=== PATIENT | female | born 1965 | race Caucasian/White ===

== ENCOUNTER 2024-06-30 07:00 | Day surgery (SDC) | payer OTHER ==
[2024-06-21 15:20] VITALS: BP 154/97; PULSE 87; RESP 18; TEMP 97.9; O2SAT 95
[2024-06-21 16:10] LABS: BASOPHIL % 0.6 % (0.1-1.2); EOSINOPHIL # 0.1 10^3/uL (0.0-0.2); EOSINOPHIL % 1.6 % (0.0-5.0); HEMATOCRIT(ML) 51.9 % (36.0-46.0); HEMOGLOBIN 17.9 g/dL (12.0-15.0); LYMPHOCYTES # 2.78 10^3/uL1 (1.0-4.8); LYMPHOCYTES % 39.5 % (24.0-44.0); MEAN CORP HGB 31.5 pg (26-34); MEAN CORP HGB CONCENTRATION 34.5 g/dL (33-36.5); MEAN CORP VOLUME 91.4 fL (78-100); MONOCYTES # 0.4 10^3/uL (0.3-0.8); MONOCYTES % 5.4 % (5.0-12.0); NEUTROPHIL # 3.7 10^3/uL (1.8-7.7); NEUTROPHILS % 52.8 % (41.0-85.0); PLATELET COUNT 217 10^3/uL (150-400); RED BLOOD CELL 5.68 10^6/uL (4.00-5.20)
[2024-06-21 16:26] LABS: ALBUMIN(ML) 4.4 g/dL (3.4-5.0); ALBUMIN/GLOBULIN RATIO 1.222; ANION GAP 15.5; BUN/CREATININE RATIO 14.95 (10.0-20.0); CALCIUM 9.1 mg/dL (8.4-10.5); CARBON DIOXIDE 27.3 mmol/L (20.0-32); CREATININE SERUM 1.07 mg/dL (0.59-1.40); EST GFR, NON-AA 52.5 (>/=60); POTASSIUM 3.8 mmol/L (3.6-5.2)
[2024-06-21 17:20] LABS: +ADD MANUAL DIFF(NO CHRG) NO
[~2024-06-30] VITALS: Ht 180.3 cm; Wt 100.7 kg
[2024-06-30] VITALS (22 sets, daily range): BP systolic 103–167; BP diastolic 59–103; PULSE 72–95; RESP 16–18; TEMP 97.1–97.7; O2SAT 90–97
[~2024-06-30 07:00] MED LIST: ESTR0.5T2 PO; NS 1000ML 1,000 ML ONE; PANT40TA6 PO; TRIA1CAP7 PO; [UNRECOGNIZED DRUG - REMARK] SUBCUT
[2024-06-30] MEDS ORDERED: LIDOCAINE 1% VIAL ONE (07:13)
[2024-06-30] MEDS ORDERED: SODIUM CHLORIDE IRR BOTTLE IR ONE (07:13)
[2024-06-30] MEDS ORDERED: XYLOCAINE 1%-EPI 1:100,000 ONE (07:13)
[2024-06-30] MEDS: NS 1000ML 1,000 ML IV SCH (07:28)
[2024-06-30] MEDS ORDERED: SUBLIMAZE 100MCG/2ML ONE (07:57)
[2024-06-30] MEDS ORDERED: ZOFRAN ONE (07:59)
[2024-06-30] MEDS ORDERED: XYLOCAINE 2% 5ML VIAL ONE (07:59)
[2024-06-30] MEDS ORDERED: OFIRMEV 1000 MG/100 ML 100 ML IV ONE (07:59)
[2024-06-30] MEDS ORDERED: DIPRIVAN IV ONE (07:59)
[2024-06-30] MEDS ORDERED: DECADRON ONE (07:59)
[2024-06-30] MEDS ORDERED: DILAUDID ONE (09:00)
[2024-06-30] MEDS: DILAUDID IV ONE ×4 (09:02→09:30)
[2024-06-30] MEDS ORDERED: ULTRAM ONE (09:24)
[2024-06-30] MEDS: ULTRAM PO ONE (09:28)
[2024-06-30] MEDS: ZOFRAN ODT SL ONE (10:15)
[2024-06-30] MEDS ORDERED: ZOFRAN ODT ONE (10:15)
[2024-06-30] MEDS ORDERED: TRANSDERM-SCOP TD ONE (10:46)
[2024-06-30] MEDS: TRANSDERM-SCOP TD ONE (10:50)
== END 2024-06-30 11:05 | disposition home or self-care (01) ==
LOC: SDC 07:00
PROVIDERS: ATTEND Orthopaedic Surgery
DX: G56.02 Carpal tunnel syndrome, left upper limb (principal); J44.9 Chronic obstructive pulmonary disease, unspecified; I48.91 Unspecified atrial fibrillation; I10 Essential (primary) hypertension; Z88.8 Allergy status to other drugs, medicaments and biological substances; Z88.1 Allergy status to other antibiotic agents; Z88.0 Allergy status to penicillin; Z90.710 Acquired absence of both cervix and uterus; Z98.890 Other specified postprocedural states; Z98.891 History of uterine scar from previous surgery; Z79.899 Other long term (current) drug therapy
CPT/HCPCS: 36415; 80053; 85025; 93005; A4217; A4649; J0131; J1100; J1171; J2003; J2405; J2704; J3010; J7030; J8499

== ENCOUNTER → 2024-07-25 | Outpatient (CLI) | payer OTHER ==
[~2024-07-25] MED LIST changes: -NS 1000ML 1,000 ML ONE
== END | disposition home or self-care (01) ==
LOC: RAD 09:57
PROVIDERS: ATTEND Nurse Practitioner
DX: M25.552 Pain in left hip (principal); M79.605 Pain in left leg; M47.816 Spondylosis without myelopathy or radiculopathy, lumbar region; M26.07 Excessive tuberosity of jaw; I87.8 Other specified disorders of veins
CPT/HCPCS: 73502; 73550-LT

== ENCOUNTER 2024-08-04 07:20 | Day surgery (SDC) | payer OTHER ==
[2024-08-01 14:05] VITALS: BP 129/90; PULSE 93; RESP 18; TEMP 98.1; O2SAT 92
[2024-08-01 14:46] LABS: BASOPHIL # 0.1 10^3/uL (0.0-0.1); BASOPHIL % 0.7 % (0.1-1.2); EOSINOPHIL # 0.1 10^3/uL (0.0-0.2); EOSINOPHIL % 0.9 % (0.0-5.0); HEMATOCRIT(ML) 50.2 % (36.0-46.0); HEMOGLOBIN 17.3 g/dL (12.0-15.0); LYMPHOCYTES # 3.09 10^3/uL1 (1.0-4.8); LYMPHOCYTES % 40.8 % (24.0-44.0); MEAN CORP HGB 31.2 pg (26-34); MEAN CORP HGB CONCENTRATION 34.5 g/dL (33-36.5); MEAN CORP VOLUME 90.5 fL (78-100); MONOCYTES # 0.7 10^3/uL (0.3-0.8); MONOCYTES % 9.1 % (5.0-12.0); NEUTROPHIL # 3.7 10^3/uL (1.8-7.7); NEUTROPHILS % 48.2 % (41.0-85.0); PLATELET COUNT 236 10^3/uL (150-400); RED BLOOD CELL 5.55 10^6/uL (4.00-5.20); WHITE BLOOD CELL 7.6 10^3/uL (4.5-11.0)
[2024-08-01 14:56] LABS: +ADD MANUAL DIFF(NO CHRG) NO
[2024-08-01 15:06] LABS: ALBUMIN(ML) 4.1 g/dL (3.4-5.0); ALBUMIN/GLOBULIN RATIO 1.078; ANION GAP 11.5; BUN/CREATININE RATIO 17.02 (10.0-20.0); CALCIUM 9.2 mg/dL (8.4-10.5); CARBON DIOXIDE 26.1 mmol/L (20.0-32); CREATININE SERUM 0.94 mg/dL (0.59-1.40); POTASSIUM 3.6 mmol/L (3.6-5.2)
[~2024-08-04] VITALS: Ht 180.3 cm; Wt 99.8 kg
[~2024-08-04 07:20] MED LIST changes: +ALLO100T PO; +NS 1000ML 1,000 ML ONE; +RESM100T PO
[2024-08-04] MEDS ORDERED: SODIUM CHLORIDE IRR BOTTLE IR ONE (07:26)
[2024-08-04 07:30] VITALS: BP 161/85; PULSE 95; RESP 18; TEMP 97.8; O2SAT 98
[2024-08-04] MEDS ORDERED: ZOFRAN ONE (07:45)
[2024-08-04] MEDS ORDERED: DIPRIVAN IV ONE (07:46)
[2024-08-04] MEDS: NS 1000ML 1,000 ML IV ONE (08:30)
[2024-08-04] MEDS ORDERED: MARCAINE 0.25%-EPI 1:200,000 ONE (08:49)
[2024-08-04 09:01] VITALS: TEMP 99
[2024-08-04 09:28] VITALS: BP 110/73; PULSE 86; RESP 14; TEMP 97.4; O2SAT 99
[2024-08-04 09:45] VITALS: BP 98/78; PULSE 84; RESP 14; O2SAT 98
[2024-08-04 10:00] VITALS: BP 104/72; PULSE 80; RESP 14; O2SAT 97
[2024-08-04 10:20] VITALS: BP 108/76; PULSE 80; RESP 16; O2SAT 98
== END 2024-08-04 10:48 | disposition home or self-care (01) ==
LOC: SDC 07:20
PROVIDERS: ATTEND Orthopaedic Surgery
DX: G56.01 Carpal tunnel syndrome, right upper limb (principal); I10 Essential (primary) hypertension; K21.9 Gastro-esophageal reflux disease without esophagitis; J44.9 Chronic obstructive pulmonary disease, unspecified; Z88.4 Allergy status to anesthetic agent; Z88.1 Allergy status to other antibiotic agents; Z88.0 Allergy status to penicillin; Z88.8 Allergy status to other drugs, medicaments and biological substances; Z98.890 Other specified postprocedural states; Z90.710 Acquired absence of both cervix and uterus; Z79.899 Other long term (current) drug therapy
CPT/HCPCS: 80053; 85025; 36415; 64721; J7030; A4649; A4217; J2704; J2405; J3490

== ENCOUNTER 2024-09-19 15:29 | Emergency (ER) | payer OTHER ==
[~2024-09-19] VITALS: Ht 180.3 cm; Wt 100.7 kg
[~2024-09-19 15:29] MED LIST changes: -NS 1000ML 1,000 ML ONE
[2024-09-19 15:35] VITALS: BP 143/90; PULSE 83; RESP 16; TEMP 97.7; O2SAT 98
[2024-09-19] MEDS ORDERED: TORADOL ONE (16:27)
[2024-09-19] MEDS ORDERED: ROBAXIN PO ONE (16:27)
[2024-09-19 16:49] LABS: BASOPHIL % 0.4 % (0.1-1.2); EOSINOPHIL # 0.3 10^3/uL (0.0-0.2); EOSINOPHIL % 2.4 % (0.0-5.0); HEMATOCRIT(ML) 50.5 % (36.0-46.0); HEMOGLOBIN 16.8 g/dL (12.0-15.0); LYMPHOCYTES # 3.83 10^3/uL1 (1.0-4.8); LYMPHOCYTES % 33.6 % (24.0-44.0); MEAN CORP HGB 31.3 pg (26-34); MEAN CORP HGB CONCENTRATION 33.3 g/dL (33-36.5); MEAN CORP VOLUME 94.2 fL (78-100); MONOCYTES # 0.8 10^3/uL (0.3-0.8); MONOCYTES % 6.6 % (5.0-12.0); NEUTROPHIL # 6.5 10^3/uL (1.8-7.7); NEUTROPHILS % 56.7 % (41.0-85.0); PLATELET COUNT 217 10^3/uL (150-400); RED BLOOD CELL 5.36 10^6/uL (4.00-5.20); RED CELL DISTRIBUTION WIDTH 13.8 % (11.5-14.5); WHITE BLOOD CELL 11.4 10^3/uL (4.5-11.0)
[2024-09-19] MEDS: ROBAXIN PO STA (16:49)
[2024-09-19] MEDS: TORADOL IV STA (16:50)
[2024-09-19 17:04] LABS: +ADD MANUAL DIFF(NO CHRG) NO
[2024-09-19 17:07] LABS: ANION GAP 13.4; BUN/CREATININE RATIO 20.66 (10.0-20.0); CALCIUM 8.4 mg/dL (8.4-10.5); CARBON DIOXIDE 25.8 mmol/L (20.0-32); CREATININE SERUM 1.21 mg/dL (0.59-1.40); EST GFR, NON-AA 45.5 (>/=60); POTASSIUM 4.2 mmol/L (3.6-5.2)
[2024-09-19 17:50] VITALS: BP 130/65; PULSE 78; RESP 16; O2SAT 95
[2024-09-19 19:14] VITALS: BP 149/90; PULSE 70; RESP 16; O2SAT 95
== END 2024-09-19 19:14 | disposition home or self-care (01) ==
LOC: ER 15:29
DX: M54.2 Cervicalgia (principal); I10 Essential (primary) hypertension; K76.0 Fatty (change of) liver, not elsewhere classified; M10.9 Gout, unspecified; Z90.710 Acquired absence of both cervix and uterus; Z88.0 Allergy status to penicillin; Z98.890 Other specified postprocedural states
CPT/HCPCS: 99285; 96374; 70491; 85025; 36415; 80048; J1885; Q9965